=== PATIENT | female | born 1995 | race Caucasian/White ===

== ENCOUNTER 2019-05-30 13:49 | Outpatient (CLI) | payer OTHER, SELFPAY ==
--- NOTE | ~2019-05-30 | MR_ITS ---
EXAMINATION: MR brain/brain stem wo con EXAM DATE: 05/30/2019 14:25 INDICATION: Right hand hemiparesis. Right foot drop. TECHNIQUE: Magnetic resonance imaging (MRI) of the brain/brain stem obtained without contrast. Sagitt al T1, axial diffusion, gradient echo (T2*), T1, T2, FLAIR sequences obtained. There is no prior st udy for comparison. FINDINGS: There are approximately 12 white matter signal abnormalities in the left periventricular wh ite matter and 8 in the right periventricular white matter, some involving the corpus callosum. No po sterior fossa signal abnormalities. Appearance is consistent with multiple sclerosis. There are no ar eas of restricted diffusion to suggest acute infarction. There is no acute hemorrhage seen on the T2 *, a hemosiderin sensitive sequence. No intraparenchymal brain mass. The ventricles are normal in si ze. There are no extra-axial collections. Flow voids are seen in the cerebral arteries on the T2-we ighted sequences consistent with their expected patency. The orbits are unremarkable. Soft tissue i s unremarkable. Large left sphenoid sinus mucous retention cyst. IMPRESSION: 1. Scattered periventricular, corpus callosal signal abnormalities consistent with multiple sclerosi s. Reviewed, dictated and finalized at location B. TICAL SCIENCE PROFESSOR IMPRESSION: 1. Scattered periventricular, corpus callosal signal abnormalities consistent with multiple sclerosis.
== END 2019-05-30 13:50 ==
PROVIDERS: Visit Provider Physician Assistant
DX: R53.1 Weakness (principal); R29.90 Unspecified symptoms and signs involving the nervous system; M21.371 Foot drop, right foot; R93.0 Abnormal findings on diagnostic imaging of skull and head, not elsewhere classified
CPT/HCPCS: 70551